=== PATIENT | female | born 1955 | race Caucasian/White ===

== ENCOUNTER 2022-03-01 11:43 | Emergency (ER) | payer MEDICAID ==
[~2022-03-01] VITALS: Ht 165.1 cm; Wt 54.5 kg
[~2022-03-01 11:43] MED LIST: LEVO100T9 PO; PARO-154 PO
[2022-03-01] MEDS ORDERED: diphenhydrAMINE 50 mg/ml inj IM ONE (12:00)
[2022-03-01] MEDS ORDERED: normal saline 1000ML IV soln IVB ONE (12:00)
[2022-03-01] MEDS ORDERED: haloperidol lactate 5mg/ml inj IM ONE (12:00)
[2022-03-01 12:41] LABS: BASOPHILS # (AUTO) 0.1 X10'3 (0-0.2); BASOPHILS % (AUTO) 0.7 % (0-1); EOSINOPHILS # (AUTO) 0.1 X10'3 (0-0.9); EOSINOPHILS % (AUTO) 0.8 % (0-6); HEMATOCRIT 39.1 % (35.0-45.0); HEMOGLOBIN 13.2 g/dl (12.0-16.0); LYMPHOCYTES % (AUTO) 27.1 % (21-51); MEAN CORPUSCULAR HEMOGLOBIN 30.8 PG (27.0-31.0); MEAN CORPUSCULAR HGB CONC 33.8 g/dL (33.0-36.5); MEAN CORPUSCULAR VOLUME 91.2 FL (78-98); MONOCYTES # (AUTO) 0.6 X10'3 (0-0.9); MONOCYTES % (AUTO) 8.1 % (2-12); NEUTROPHILS # (AUTO) 4.6 X10'3 (1.8-7.7); NEUTROPHILS % (AUTO) 63.3 % (42-75); PLATELET COUNT 508 X10'3 (140-440); RED BLOOD COUNT 4.29 X10'6 (4.20-5.60); RED CELL DISTRIBUTION WIDTH 12.5 % (11.5-14.5); WHITE BLOOD COUNT 7.3 X10'3 (4.5-11.0)
[2022-03-01 13:01] LABS: ALANINE AMINOTRANSFERASE 20 U/L (12-78); ALBUMIN 3.2 G/DL (3.4-5.0); ALBUMIN/GLOBULIN RATIO 0.7 (1.1-1.5); ALKALINE PHOSPHATASE 94 IU/L (46-116); ANION GAP 6 (8-16); ASPARTATE AMINO TRANSFERASE 24 U/L (10-37); BILIRUBIN,TOTAL 0.3 MG/DL (0.1-1.0); BLOOD UREA NITROGEN 14 MG/DL (7-18); BUN/CREATININE RATIO 15.1 (6.6-38.0); CALCIUM 8.9 MG/DL (8.5-10.1); CHLORIDE 103 MMOL/L (99-107); CREATININE 0.93 MG/DL (0.40-0.90); ETHANOL 0.075 GM/DL (0.0-0.010); GLUCOSE 78 MG/DL (70-104); SODIUM 138 MMOL/L (135-145); TOTAL CARBON DIOXIDE 28.8 MMOL/L (24-32); TOTAL PROTEIN 7.9 G/DL (6.4-8.2); eGFR 60 ML/MIN
[2022-03-01 13:09] LABS: ACETAMINOPHEN < 2.0 UG/ML (10-30); POTASSIUM 4.1 MMOL/L (3.5-5.1)
--- NOTE | 2022-03-01 15:28 | NUR ---
PACKET FAXED TO [facility]
--- NOTE | 2022-03-01 16:15 | NUR ---
Pt assisted up OOB to [facility]. Pt is calm and cooperative.
[2022-03-01 16:52] LABS: URINE AMPHETAMINE SCREEN POSITIVE (Neg); URINE BARBITUATE SCREEN NEGATIVE (Neg); URINE BENZODIAZEPINES SCREEN NEGATIVE (Neg); URINE CANNABINOID SCREEN NEGATIVE (Neg); URINE COCAINE SCREEN NEGATIVE (Neg); URINE METHADONE SCREEN NEGATIVE (Neg); URINE OPIATE SCREEN NEGATIVE (Neg); URINE PHENCYCLIDINE SCREEN NEGATIVE (Neg)
[2022-03-01] MEDS ORDERED: levoTHYROXINE 25mcg tablet PO STA (18:23)
--- NOTE | 2022-03-01 19:53 | NUR ---
PT REFUSED LEVOTHYROXIN, BY STATING THAT SHE DOESNT WANT TO TAKE IT BECAUSE "I HATE LIFE." PT IS EDUCATED ABOUT THE IMPORTANCE OF THE MEDICATION, AND SHE STILL WANTS TO REFUSE. WILL NOTIFY CHARGE.
--- NOTE | 2022-03-02 06:42 | NUR ---
Patient sleeping in bed on left side. Respirations are even and unlabored.
[2022-03-02] MEDS ORDERED: levoTHYROXINE 25mcg tablet PO SCH (07:00)
--- NOTE | 2022-03-02 09:06 | NUR ---
[facility] here evaluating patient.
--- NOTE | 2022-03-02 13:18 | NUR ---
Patient ate only a small amount of lunch and is sleeping at this time.
--- NOTE | 2022-03-02 14:43 | NUR ---
Patient remains sleeping on left side. Respirations are even and unlabored.
--- NOTE | 2022-03-03 06:40 | NUR ---
Patient sleeping on right side. No distress observed. Continue to monitor.
--- NOTE | 2022-03-03 08:11 | NUR ---
Patient sitting up and eating breakfast. No distress observed. Continue to monitor.
[2022-03-03] MEDS: levoTHYROXINE 100mcg tablet PO SCH (08:58)
[2022-03-03] MEDS: PARoxetine 20mg tablet PO SCH (08:58)
--- NOTE | 2022-03-03 10:03 | NUR ---
Patient appears to be sleeping. No distress observed. Continue to monitor.
--- NOTE | 2022-03-03 11:50 | NUR ---
Registration speaking with patient. No distress observed. Continue to monitor.
--- NOTE | 2022-03-03 12:20 | NUR ---
Patient eating lunch. No distress observed. Continue to monitor.
--- NOTE | 2022-03-03 14:19 | NUR ---
Patient sleeping on right side. No distress observed. Continue to monitor.
--- NOTE | 2022-03-03 15:35 | NUR ---
Patient laying awake with the blanket over her nose and mouth. No distress observed. Continue to monitor.
--- NOTE | 2022-03-03 18:17 | NUR ---
Patient sleeping. No distress observed. Continue to monitor.
--- NOTE | 2022-03-03 21:21 | NUR ---
GENERAL ASSESSMENT REVIEWED
--- NOTE | 2022-03-04 06:38 | NUR ---
Patient sleeping supine. No distress observed. Continue to monitor.
[2022-03-04] MEDS: levoTHYROXINE 100mcg tablet PO SCH (07:42)
[2022-03-04] MEDS: PARoxetine 20mg tablet PO SCH (07:42)
[2022-03-04 07:57] VITALS: BP 111/80
--- NOTE | 2022-03-04 08:17 | NUR ---
Patient eating breakfast. No distress observed. Continue to monitor.
--- NOTE | 2022-03-04 10:22 | NUR ---
Patient sleeping supine. No distress observed. Continue to monitor.
--- NOTE | 2022-03-04 11:41 | NUR ---
Iker SWANN, evaluating patient. Continue to monitor.
--- NOTE | 2022-03-04 12:02 | NUR ---
Met with patient in regards to substance use and to see if patient was interested in resources for treatment options. Patient declined resources. Patient stated that she does not use very much and does not feel like she has a problem.
--- NOTE | 2022-03-04 12:27 | NUR ---
Patient eating lunch. No distress observed. Continue to monitor.
--- NOTE | 2022-03-04 13:36 | NUR ---
Patient sleeping on right side. Per I[facility], patient to be going home with daughter around 1800 (daughter works for the [employer] and will product picker her mom once she is off of work.)
--- NOTE | 2022-03-04 15:08 | NUR ---
Patient sleeping on right side. No distress observed. Continue to monitor.
--- NOTE | 2022-03-04 16:29 | NUR ---
Patient sleeping on right side. No distress observed. Continue to monitor.
== END 2022-03-04 17:47 | disposition home or self-care (01) ==
LOC: ER 11:43
DX: R45.851 Suicidal ideations (principal); Z20.822 Contact with and (suspected) exposure to COVID-19; E03.9 Hypothyroidism, unspecified; F79 Unspecified intellectual disabilities; Z88.0 Allergy status to penicillin; Z79.899 Other long term (current) drug therapy; F15.10 Other stimulant abuse, uncomplicated
CPT/HCPCS: 36415; 80053; 80305; 80320; 80329; 84443; 85025; 87811; 96360; 96372; 99285; J1200; J1630; J7030